=== PATIENT | female | born 1955 | race Caucasian/White ===

== ENCOUNTER 2017-08-27 19:38 | Emergency (ER) | payer OTHER ==
[~2017-08-27] VITALS: Ht 167.6 cm; Wt 61.2 kg
[2017-08-27] MEDS ORDERED: KEFLEX250 MG PO (20:35)
== END 2017-08-27 22:15 | disposition home or self-care (01) ==
LOC: ED 19:38
DX: J20.8 Acute bronchitis due to other specified organisms (principal); Z88.8 Allergy status to other drugs, medicaments and biological substances; Z79.2 Long term (current) use of antibiotics
CPT/HCPCS: 71046; 80053; 81001; 83605; 85025; 87040; 87502; 94640; 96360; 99284; J7030

== ENCOUNTER 2017-09-28 11:43 | Emergency (ER) | payer OTHER ==
[~2017-09-28] VITALS: Ht 167.6 cm; Wt 61.2 kg
[~2017-09-28 11:43] MED LIST: KEFLEX250 MG PO
== END 2017-09-28 13:38 | disposition home or self-care (01) ==
LOC: ED 11:43
DX: S09.90XA Unspecified injury of head, initial encounter (principal); S16.1XXA Strain of muscle, fascia and tendon at neck level, initial encounter; Z88.8 Allergy status to other drugs, medicaments and biological substances; Z79.2 Long term (current) use of antibiotics; W01.10XA Fall on same level from slipping, tripping and stumbling with subsequent striking against unspecified object, initial encounter
CPT/HCPCS: 70450; 72125; 99284

== ENCOUNTER 2019-06-20 13:42 | Emergency (ER) | payer OTHER ==
[~2019-06-20] VITALS: Ht 167.6 cm; Wt 61.2 kg
== END 2019-06-20 17:19 | disposition home or self-care (01) ==
LOC: ED 13:42
DX: N23 Unspecified renal colic (principal); Z88.8 Allergy status to other drugs, medicaments and biological substances
CPT/HCPCS: 74176; 81001; 96372; 99284-25; J1885

== ENCOUNTER 2019-10-23 06:47 | Emergency (ER) | payer OTHER ==
[~2019-10-23] VITALS: Ht 167.6 cm; Wt 61.2 kg
[2019-10-23] MEDS ORDERED: ACYCLOVIR800 MG PO (08:35)
[2019-10-23] MEDS ORDERED: BACTRIM DS TAB1 EACH PO (08:35)
== END 2019-10-23 08:53 | disposition home or self-care (01) ==
LOC: ED 06:47
DX: N39.0 Urinary tract infection, site not specified (principal); M79.81 Nontraumatic hematoma of soft tissue; B00.1 Herpesviral vesicular dermatitis; J45.909 Unspecified asthma, uncomplicated; Z87.891 Personal history of nicotine dependence
CPT/HCPCS: 71046; 80053; 81001; 85025; 85610; 85730; 87077; 87088; 87186; 99283-25

== ENCOUNTER 2022-08-01 16:51 | Emergency (ER) | payer MEDICARE ==
[~2022-08-01] VITALS: Ht 167.6 cm; Wt 61.2 kg
[~2022-08-01 16:51] MED LIST changes: +ACYCLOVIR800 MG PO; +BACTRIM DS TAB1 EACH PO
--- OUTSIDE RECORDS SUMMARY | 2022-08-01 16:58 | XMS ---
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 - 2 Visits in 30 Days CARE PROVIDERS ABA SMITH Physician Nurse Healthcare Manager Current PHONE: [phone] Olga has no Care Guidelines for this patient. [place] VISIT COUNT ([address] [facility] TOTAL 2 NOTE: Visits indicate total known visits. ED/UCC VISIT TRACKING (12 MO.) 08/01/2022 16:52 [facility] [place] TYPE: Emergency COMPLAINT: - BLOOD PRESSURE PROBLEM 07/26/2022 21:12 [facility] [place] TYPE: Emergency COMPLAINT: - HIGH BLOOD PRESSURE AND RACING HEART DIAGNOSES: - Palpitations - Personal history of nicotine dependence - Unspecified asthma, uncomplicated - Elevated blood-pressure reading, without diagnosis of hypertension - Allergy status to other drugs, medicaments and biological substances INPATIENT VISIT TRACKING (12 MO.) No inpatient visits to display in this time frame [email or web address]
--- NOTE | 2022-08-02 15:59 | EKG ---
[facility] [address] [facility] [place], [place] [address] Signed Normal sinus rhythm Incomplete right bundle branch block Borderline ECG When compared with ECG of 26-JUL-2022 21:45, No significant change was found Confirmed by JAY BAR MD ([id number]) on 08/02/2022 3:59:37 PM Electronically Signed By: JAY BAR MD 08/02/22 1559 PATIENT NAME: AMANDA MARTIN Electrocardiogram DATE OF : 55 PHYSICIAN: JAY BAR MD REPORT #: [id number] REPORT IS CONFIDENTIAL AND NOT TO BE RELEASED WITHOUT AUTHORIZATION
== END 2022-08-01 21:00 | disposition home or self-care (01) ==
LOC: ED 16:51
DX: R00.2 Palpitations (principal); J45.909 Unspecified asthma, uncomplicated; Z88.8 Allergy status to other drugs, medicaments and biological substances
CPT/HCPCS: 93005; 93010; 99284-25

== ENCOUNTER 2023-12-28 08:20 | Day surgery (SDC) | payer MEDICARE ==
[2023-12-21 09:23] VITALS: BP 125/78
[~2023-12-28] VITALS: Ht 167.6 cm; Wt 65.9 kg
[~2023-12-28 08:20] MED LIST changes: +IBLOOD GLUCOSE TEST STRIP 1 EA TEST VI PRN; +LACTATED RINGER'S 1,000 ML IV SCH; +LIDOCAINE HCL 1% 5 ML SDV INJ ONE; +PROBIOTIC1 EAC2 PO
[2023-12-28 08:35] VITALS: BP 128/70
[2023-12-28] MEDS ORDERED: CIPROFLOXACIN 0.3% 5 ML HOME.PACK ONE (09:55)
[2023-12-28] MEDS ORDERED: DEXAMETHASONE SOD PHOS 4 MG/ML VIAL ONE (10:02)
[2023-12-28] MEDS ORDERED: ondansetron HCL 4 MG/2 ML VIAL ONE (10:02)
[2023-12-28] MEDS ORDERED: LIDOCAINE HCL 2% 5 ML SDV ONE (10:02)
[2023-12-28] MEDS ORDERED: propofoL 200 MG/20 ML VIAL ONE (10:02)
[2023-12-28] MEDS ORDERED: fentaNYL citrate 100 MCG/2 ML VIAL ONE (10:03)
[2023-12-28] MEDS ORDERED: ACETAMINOPHEN 1,000 MG/100 ML VIAL ONE (10:08)
[2023-12-28] MEDS ORDERED: HYDROmorphone HCL 1 MG/ML SYR IV PRN (10:15)
[2023-12-28] MEDS ORDERED: droPERidol 5 MG/2 ML VIAL IV PRN (10:15)
[2023-12-28] MEDS ORDERED: ondansetron HCL 4 MG/2 ML VIAL IV PRN (10:15)
[2023-12-28] MEDS ORDERED: fentaNYL citrate 50 MCG/ML SDV IV PRN (10:15)
[2023-12-28] MEDS ORDERED: IBLOOD GLUCOSE TEST STRIP 1 EA TEST VI PRN (10:15)
[2023-12-28] MEDS ORDERED: NALOXONE HCL 0.4 MG SYR IV PRN (10:15)
[2023-12-28] MEDS ORDERED: CIPROFLOXACIN 0.3% 5 ML HOME.PACK OTIC ONE (10:30)
--- NOTE | 2023-12-28 11:00 | NUR ---
PT ARRIVES TO DS FROM PACU VIA STRETCHER. PT IS A&O AND REPORTS PAIN 2/10 AT THIS TIME AND TOLERABLE. PT IS ON RA W/O2 >90%, RESPIRATIONS ARE EVEN AND UNLABORED, NO SIGNS OF DISTRESS. COTTON BALLS REMAIN IN EARS BILAT, NO SIGNS OF DRAINAGE AT THIS TIME. HOB ELEVATED TO 60 DEGREES, PT IS TOLERATING LIQUIDS WITHOUT DIFFICULTY SWALLOWING, JELLO/CRACKERS AT BEDSIDE. PT REPORTS NO FURTHER NEEDS AT THIS TIME, CALL LIGHT WITHIN REACH.
[2023-12-28 11:04] VITALS: BP 104/46
--- NOTE | 2023-12-28 11:18 | NUR ---
12/28/23 1118 Salome Morin 1031 PT ARRIVED TO PACU AND STARTS REACHING UP FOR HER FACE. 1032 PT ABLE TO FOLLOW COMANDS TO OPEN MOUTH AND ORAL AIRWAY REMOVED. RESP EVEN AND UNLABORED. O2 MASK REMOVED AND PT REORIENTED TO PACU. PT DENIES PAIN AND NAUSEA. 1045 PT RESTING IN BED AND DENIES CONCERNS. EDUCTION GIVEN ABOUT GAMA BALLS IN EARS. PT REPORTS SHE HAD RINGING IN HER EAR BEFORE SURGERY AND THAT IS GONE NOW. 1100 PT RETURNED TO ROOM AND REPORT GIVEN. ALL QUESTIONS ANSWERED.
--- NOTE | 2023-12-28 11:45 | NUR ---
IN PT ROOM FOR ROUNDING, PT IS ON PHONE AT THIS TIME.
--- NOTE | 2023-12-28 11:52 | OR ---
[facility] [address] [place], [place] [address] Signed DATE OF OPERATION: 12/28/2023 SURGEON: Jovanny Merchant MD PREOPERATIVE DIAGNOSIS: Chronic eustachian tube dysfunction. POSTOPERATIVE DIAGNOSIS: Chronic eustachian tube dysfunction. PROCEDURE: Bilateral myringotomy and ventilation tube insertion with T tubes. ANESTHESIA: General, LMA; PROMOTION SPECIALIST, Lenny PREOP HISTORY: Mrs. Martin is a 68-year-old lady with chronic ear problems. She has had trouble with clearing her ears when flying, various of severe discomfort. She is taken to the operating room for the above-mentioned procedures. OPERATIVE PROCEDURE AND FINDINGS: After informed consent, the patient was taken to the operating room, placed in supine position, where general LMA anesthesia was induced. The patient and procedure were verified. The patient was repositioned. Left ear was examined with the operating microscope. Anterior inferior radial myringotomy was made. No middle ear effusion. T-Tube was placed in myringotomy site. Ofloxacin ophthalmic drops applied to the ear canal. Cotton ball to the meatus. Same procedure and same findings in the right ear. The patient tolerated the procedure well, was awakened, extubated, and transported to the recovery room in good condition. No complications. BLOOD LOSS: Minimal. SPECIMEN: No specimen. DRAINS: No drains. Electronically Signed By: JOVANNY MERCHANT MD 12/28/23 1152 PATIENT NAME: AMANDA MARTIN OPERATIVE REPORT DATE OF : 55 REPORT #: [id number] PHYSICIAN: JOVANNY MERCHANT MD PCP: ABA SMITH PA-C REPORT IS CONFIDENTIAL AND NOT TO BE RELEASED WITHOUT AUTHORIZATION [address] [place], [place] [address] Signed PACKING: No packing. Jovanny Merchant MD /MODL /[id number] Copies: ~ Electronically Signed By: JOVANNY MERCHANT MD 12/28/23 1152 PATIENT NAME: AMANDA MARTIN OPERATIVE REPORT DATE OF : 55 REPORT #: [id number] PHYSICIAN: JOVANNY MERCHANT MD PCP: ABA SMITH PA-C REPORT IS CONFIDENTIAL AND NOT TO BE RELEASED WITHOUT AUTHORIZATION
--- NOTE | 2023-12-28 12:00 | NUR ---
PT REPORTS NEED TO URINE VOID. PT UP TO BEDSIDE AND REPORTS NO DIZZINESS/NAUSEA AT THIS TIME. PT TO BATHROOM VIA STANDBY ASSIST BY THIS RN FOR 200 ML OF CLEAR/YELLOW URINE OUTPUT. PT BACK TO ROOM AND GETTING DRESSED AT THIS TIME. PT ENCOURAGED TO MOVE SLOWLY, NOT BEND OVER EXCESSIVELY. PT STATES VERBAL UNDERSTANDING TO INSTRUCTIONS. CALL LIGHT WITHIN REACH.
[2023-12-28 12:10] VITALS: BP 126/62
--- NOTE | 2023-12-28 12:10 | NUR ---
IN PT ROOM FOR DISCHARGE EDUCATION AND VS. PT STATES VERBAL UNDERSTANDING TO DISCHARGE EDUCATION AT THIS TIME AND STATES NO FURTHER QUESTIONS. SISTER CALLED FOR RIDE. VS TAKEN. PT OFF OF UNIT VIA WC TO PASSENGER SIDE OF SISTER'S VEHICLE. ALL BELONGINGS IN PT POSSESSION AT THIS TIME. PT REPORTS NO FURTHER NEEDS.
== END 2023-12-28 12:15 | disposition home or self-care (01) ==
LOC: DS 08:20 → OPS 08:20 → DS 09:45 → OPS 12:15
PROVIDERS: ATTEND Otolaryngology
PROC: 099500Z Drainage of Right Middle Ear with Drainage Device, Open Approach (ICD-10-PCS; 2023-12-28)
PROC: 099600Z Drainage of Left Middle Ear with Drainage Device, Open Approach (ICD-10-PCS; principal; 2023-12-28 09:40)
DX: H69.83 Other specified disorders of Eustachian tube, bilateral (principal)
CPT/HCPCS: J0131; J1100; J2001; J2405; J2704; J3010; J7121